=== PATIENT | female | born 1970 | race Hispanic/Latino ===

== ENCOUNTER 2019-04-01 19:42 | Emergency (ER) | payer OTHER ==
[~2019-04-01] VITALS: Ht 149.9 cm; Wt 70.3 kg
--- OUTSIDE RECORDS SUMMARY | 2019-04-01 19:45 | XMS REPORT ---
[facility] Address Unknown Phone Unavailable Care Team Providers Care Frame Feeder Name Role Phone Unavailable Unavailable Problems This patient has no known problems. Allergies, Adverse Reactions, Alerts This patient has no known allergies or adverse reactions. Medications This patient has no known medications. Encounters Start Date/Time End Date/Time Encounter Type Admission Type Attending [facility] Care Department Encounter ID 2017-08-08 00:00:00 2017-08-08 00:00:00 Outpatient [facility] [id number] 2017-07-03 00:00:00 2017-07-03 00:00:00 Outpatient [facility] [id number] 2017-06-26 00:00:00 2017-06-26 00:00:00 Outpatient [facility] [id number] 2017-06-05 13:52:05 2017-06-05 13:52:05 Outpatient [facility] [id number] 2017-06-05 11:37:29 2017-06-05 11:37:29 Outpatient [facility] [id number] 2017-05-28 08:18:37 2017-05-28 08:18:37 Outpatient [facility] [id number] 2017-04-10 13:04:47 2017-04-10 13:04:47 Outpatient [facility] [id number] 2017-04-10 11:41:45 2017-04-10 11:41:45 Outpatient [facility] [id number] 2017-03-19 00:00:00 2017-03-19 00:00:00 Outpatient [facility] [id number] 2017-03-16 00:00:00 2017-03-16 00:00:00 Outpatient [facility] [id number] 2017-03-05 09:17:21 2017-03-05 09:17:21 Outpatient [facility] [id number] 2017-02-14 16:44:39 2017-02-14 16:44:39 Outpatient [facility] [id number] 2017-02-14 15:50:56 2017-02-14 15:50:56 Outpatient [facility] [id number] 2017-02-08 00:00:00 2017-02-08 00:00:00 Outpatient [facility] [id number] 2017-02-08 00:00:00 2017-02-08 00:00:00 Outpatient [facility] [id number] 2017-02-05 00:00:00 2017-02-05 00:00:00 Outpatient [facility] [id number] 2017-02-05 00:00:00 2017-02-05 00:00:00 Outpatient [facility] [id number] 2017-02-05 00:00:00 2017-02-05 00:00:00 Outpatient [facility] [id number] 2017-01-11 07:56:00 2017-01-11 07:56:00 Outpatient [facility] [id number] 2017-01-08 19:09:57 2017-01-08 19:09:57 Outpatient [facility] [id number] 2016-12-29 00:00:00 2016-12-29 00:00:00 Outpatient [facility] [id number] 2016-11-20 13:52:42 2016-11-20 13:52:42 Outpatient [facility] [id number] 2016-11-10 13:16:06 2016-11-10 13:16:06 Outpatient [facility] [id number] 2016-11-10 11:52:42 2016-11-10 11:52:42 Outpatient [facility] [id number] 2016-11-02 09:08:59 2016-11-02 09:08:59 Outpatient [facility] [id number]
[2019-04-01] MEDS ORDERED: HYDROCODONE/APAP 10MG-325MG TAB PO ONE (20:15)
[2019-04-01] MEDS ORDERED: FENTANYL CITRATE/PF 100MCG/2 ML INJ IV NR (20:30)
--- NOTE | 2019-04-01 20:30 | Diagnostic Imaging Report ---
Radiographs of the right elbow HISTORY: Fall. Dislocation. COMPARISON: None available. FINDINGS: Bones: No acute displaced fracture. The distal humerus is dislocated in a palmar direction. Joints: The joint spaces are well-maintained. Soft tissues: Soft tissue swelling IMPRESSION: Elbow dislocation. No definite fracture is seen. Soft tissue swelling Signed by: Dr. Qamar Frances M.D. on 04/01/2019 8:26 PM
[2019-04-01] MEDS ORDERED: ONDANSETRON HCL INJ 2MG/ML 2ML 2 MG/ML VIAL ONE (20:34)
[2019-04-01] MEDS ORDERED: ONDANSETRON HCL INJ 2MG/ML 2ML 2 MG/ML VIAL IV NR (21:00)
[2019-04-01] MEDS ORDERED: LIDOCAINE HCL 1% LOCAL INJ 20 ML VIAL INJ NR (21:15)
--- NOTE | 2019-04-01 21:47 | NUR ---
ORTHOPEDICS CONSULTATION 48 yo right hand dominant female presents to the ED after a mechanical fall while at work with complaints of right elbow pain. Pain localized to the elbow. No numbness, paresthesias or loss of distal motor function. Denies pain in any other extremity. 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 Xrays demonstrated a reduced elbow. The elbow was placed in a long arm splint. The patient tolerated the procedure well and was neurovascularly intact 48 yo F with right posterolateral elbow dislocation s/p closed reduction with manipulation Analgesics NWB RUE Splint Care Follow up in 1 week for repeat Xrays Rest, Ice & Elevation Orthopedically stable for discharge DO [facility]
--- NOTE | 2019-04-01 22:15 | Diagnostic Imaging Report ---
X-ray right elbow 3 views HISTORY: Pain. COMPARISON: X-ray right ankle 04/01/2019 7:50 PM FINDINGS: Bones: No acute displaced fracture. Osseous alignment is within normal limits. Joints: The joint spaces are well-maintained. The elbow joint has been relocated in appropriate position compared to prior elbow radiograph. Moderate joint effusion. Soft tissues: The soft tissues appear unremarkable. IMPRESSION: Status post closed elbow joint relocation, now in normal anatomic alignment. Moderate joint effusion. No discrete fracture. Signed by: Newton Wallace DO on 04/01/2019 10:12 PM
[2019-04-02] VITALS: BP 157/81
== END 2019-04-01 22:23 | disposition home or self-care (01) ==
LOC: ER 19:42
DX: S53.024A Posterior dislocation of right radial head, initial encounter (principal); W01.0XXA Fall on same level from slipping, tripping and stumbling without subsequent striking against object, initial encounter; Y99.0 Civilian activity done for income or pay
CPT/HCPCS: 24640; 73080; 99284; J2405; J3010